=== PATIENT | male | born 1975 | race Caucasian/White ===

== ENCOUNTER 2020-03-15 20:47 | Emergency (ER) | payer OTHER ==
[~2020-03-15 20:47] MED LIST: ALBUTEROL2.5 MG/3 M INH; ATIVAN0.5 MG PO; CLARITIN10 M2 PO; FLONASE ALLER15.8 ML; FLOVENT 220 MC7.9 GM INH; GABAPENTIN800 MG PO; HUMIBID LA TAB600 MG PO; IPRAT-ALBUT 0.5-3 ML NEB; MONTELUKAST SOD10 MG PO; OMEPRAZOLE20 MG PO; PERCOCET 5/325 T1 EA PO; PHENERGAN6.25 MG/5 PO; PRAVASTATIN SOD20 MG PO; PREDNISONE 10 M10 MG GT; PROVENTIL HFA6.7 GM INH; SILDENAFIL20 MG PO; SPIRIVA18 MCG INH; ZESTRIL40 MG PO
[2020-03-15 21:27] LABS: HEMOGLOBIN 13.2 gm/dl (14.0-17.5); RED BLOOD COUNT 4.41 M/UL (4.20-5.50); WHITE BLOOD COUNT 4.5 K/UL (4.5-11.0)
[2020-03-15 21:48] LABS: BUN/CREATININE RATIO 8 (0-10)
[2020-03-15] MEDS ORDERED: IPRAT-ALBUT 0.5-3 ML INH (22:41)
[2020-03-15] MEDS ORDERED: MUCINEX600 MG PO (22:41)
[2020-03-15] MEDS ORDERED: PROVENTIL HFA6.7 GM INH (22:41)
[2020-03-15] MEDS ORDERED: PREDNISONE 10 M10 MG PO (22:41)
== END 2020-03-15 22:57 | disposition home or self-care (01) ==
LOC: ER1 20:47
PROVIDERS: Physician Assistant
DX: J45.901 Unspecified asthma with (acute) exacerbation (principal); Z20.822 Contact with and (suspected) exposure to COVID-19
CPT/HCPCS: 71045; 80053; 82550; 82553; 83605; 83874; 84484; 85025; 87040; 93005; 94664; 96374; 96375; 99285; J1100; J1885; U0002

== ENCOUNTER 2020-03-17 17:12 | Emergency (ER) | payer OTHER ==
[~2020-03-17 17:12] MED LIST changes: +IPRAT-ALBUT 0.5-3 ML INH; +MUCINEX600 MG PO; +PREDNISONE 10 M10 MG PO
== END 2020-03-17 19:00 | disposition left against medical advice (07) ==
LOC: ER1 17:12
DX: R06.89 Other abnormalities of breathing (principal); Z53.21 Procedure and treatment not carried out due to patient leaving prior to being seen by health care provider